=== PATIENT | female | born 1975 | race American Indian/Alaskan Native ===

== ENCOUNTER 2018-11-29 14:41 | Emergency (ER) | payer SELFPAY ==
[~2018-11-29] VITALS: Ht 182.9 cm; Wt 125.0 kg
[2018-11-29] MEDS ORDERED: NITROGLYCERIN 0.4MG TABLET SL SL PRN (16:30)
[2018-11-29] MEDS ORDERED: ASPIRIN 81MG TABLET PO ONE (16:30)
[2018-11-29 16:54] LABS: BASOPHILS % 0.2 % (0.0-2.0); EOSINOPHILS % 3.7 % (0.0-5.0); HEMATOCRIT. 37.7 % (36.0-48.0); LYMPHOCYTES % 29.2 % (20.0-50.0); MEAN CORPUSCULAR HEMOGLOBIN 23.1 pg (28.0-32.0); MEAN CORPUSCULAR VOLUME 72.9 fL (81.0-99.0); MEAN PLATELET VOLUME 8.8 fl (7.4-10.4); MONOCYTES % 5.4 % (2.0-8.0); NEUTROPHILS % 61.5 % (40.0-76.0); PLATELET 409 x1000/uL (130-400); RED BLOOD CELL COUNT 5.17 mill/uL (4.2-5.4); RED CELL DISTRIBUTION WIDTH 16.7 % (11.6-14.6)
[2018-11-29 17:00] LABS: CHLORIDE 106 mEq/L (98-107)
[2018-11-29 17:02] LABS: HCG SCREEN NEGATIVE
[2018-11-29 17:08] LABS: D-DIMER 0.72 mg/L FEU (<0.50); PARTIAL THROMBOPLASTIN TIME 30.7 sec (23.4-31.0)
[2018-11-29 20:28] VITALS: BP 117/73
[2018-11-29] MEDS ORDERED: IOHEXOL-350 100 ML BOTTLE ONE (21:51)
== END 2018-11-29 20:28 | disposition left against medical advice (07) ==
LOC: ER 14:41
DX: R07.89 Other chest pain (principal)
CPT/HCPCS: 36415; 71045; 71275; 80053; 83880; 84484; 84703; 85025; 85379; 85610; 85730; 93005; 99284; Q9967; Z7610